=== PATIENT | male | born 1960 | race African-American/Black ===

== ENCOUNTER 2019-10-13 15:19 | Emergency (ER) | payer MEDICARE ==
[~2019-10-13] VITALS: Ht 167.6 cm; Wt 90.9 kg
[2019-10-13 15:49] VITALS: Ht 167.6 cm; Wt 90.9 kg
[2019-10-13] MEDS ORDERED: NEURONTIN 300300 MG PO (16:36)
[2019-10-13 17:00] VITALS: BP 142/68
== END 2019-10-13 17:01 | disposition home or self-care (01) ==
LOC: D.ER 15:19
DX: M27.3 Alveolitis of jaws (principal); E11.9 Type 2 diabetes mellitus without complications; I10 Essential (primary) hypertension; Z72.0 Tobacco use; K08.89 Other specified disorders of teeth and supporting structures; R51 Headache; M54.2 Cervicalgia